=== PATIENT | male | born 1960 | race Hispanic/Latino ===

== ENCOUNTER 2017-06-19 07:17 | Emergency (ER) | payer BC ==
--- NOTE | 2017-06-19 07:33 | ED PDOC ---
Arrival/HPI - General Time Seen by Provider: 06/19/17 07:32 Historian: Patient - History of Present Illness Narrative History of Present Illness (Text): 06/19/17 08:00 56 year old male, who presents to the emergency department complaining of intermittent epigastric pain since one week. Patient reports having a subjective fever associated with diarrhea. Patient denies nausea, vomiting, chest pain, shortness of breath, dysuria, hematuria, or other complaints. Time/Duration: 1 week Symptom Onset: Sudden Symptom Course: Unchanged, Intermittent Context: Home Past Medical History - Provider Review Nursing Documentation Reviewed: Yes Family/Social History - Physician Review Nursing Documentation Reviewed: Yes Family/Social History: Unknown Family HX Allergies/Home Meds Allergies/Adverse Reactions: Allergies oxytetracycline [From Terramycin] Allergy (Verified 06/19/17 07:32) ANAPHYLAXIS Penicillins Allergy (Verified 06/19/17 07:32) ANAPHYLAXIS Review of Systems - Physician Review All systems were reviewed & negative as marked: Yes - Review of Systems Constitutional: Fevers Respiratory: absent: SOB Cardiovascular: absent: Chest Pain Gastrointestinal: Abdominal Pain, Diarrhea. absent: Vomiting Genitourinary Male: absent: Dysuria Physical Exam Vital Signs Reviewed: Yes Vital Signs Temp Pulse Resp BP Pulse Ox 06/19/17 09:38 98.9 F 62 18 99 06/19/17 09:37 62 18 99 06/19/17 07:35 98.5 F 68 18 147/95 H 97 Temperature: Afebrile Blood Pressure: Hypertensive Pulse: Regular Respiratory Rate: Normal Appearance: Positive for: Well-Appearing, Non-Toxic, Comfortable Pain Distress: None Mental Status: Positive for: Alert and Oriented X 3 - Systems Exam Head: Present: Atraumatic, Normocephalic Pupils: Present: PERRL Extroacular Muscles: Present: EOMI Conjunctiva: Present: Normal Respiratory/Chest: Present: Clear to Auscultation, Good Air Exchange. No: Respiratory Distress, Accessory Muscle Use, Wheezes, Rales, Rhonchi Cardiovascular: Present: Regular Rate and Rhythm, Normal S1, S2. No: Murmurs Abdomen: Present: Tenderness (mild left upper quadrant tenderness). No: Distention, Peritoneal Signs, Rebound, Guarding Neurological: Present: GCS=15, CN II-XII Intact, Speech Normal Skin: Present: Warm, Dry, Normal Color. No: Rashes Psychiatric: Present: Alert, Oriented x 3, Normal Insight, Normal Concentration Medical Decision Making ED Course and Treatment: 06/19/17 Impression: 56 year old male with mild left upper quadrant tenderness complaining of epigastric abdominal pain associated with diarrhea. Plan: -- EKG -- CT abdomen and pelvis -- Labs -- Sodium Chloride -- Reassess and disposition Progress Notes: EKG: Ordered, reviewed, and independently interpreted the EKG. Rate : 67 BPM Rhythm : NSR Interpretation : No ST-segment elevations or depressions, no T-wave inversions, normal intervals. 06/19/17 09:[address]: Creator : Michael Land MD FINDINGS: LOWER THORAX: Unremarkable. LIVER: Unremarkable. No gross lesion or ductal dilatation. GALLBLADDER AND BILE DUCTS: Unremarkable. PANCREAS: Unremarkable. No gross lesion or ductal dilatation. SPLEEN: Unremarkable. ADRENALS: Unremarkable. No mass. KIDNEYS AND URETERS: 2 centimeter left peripelvic renal cyst. No hydronephrosis. No solid mass. VASCULATURE: Unremarkable. No aortic aneurysm. BOWEL: Unremarkable. No obstruction. No gross mural thickening. APPENDIX: Normal appendix. PERITONEUM: Unremarkable. No free fluid. No free air. LYMPH NODES: Unremarkable. No enlarged lymph nodes. BLADDER: Unremarkable. REPRODUCTIVE: Unremarkable. BONES: No acute fracture. OTHER FINDINGS: None. IMPRESSION: 2 centimeter left peripelvic renal cyst. Otherwise, unremarkable contrast enhanced CT of the abdomen and pelvis. - Lab Interpretations Lab Results: 06/19/17 07:55 06/19/17 07:55 Lab Results 06/19/17 07:55: Sodium 140, Potassium 4.3, Chloride 103, Carbon Dioxide 24, Anion Gap 18, BUN 14, Creatinine 0.9, Est GFR ( Amer) > 60, Est GFR (Non- Af Amer) > 60, Random Glucose 110, Calcium 9.1, Magnesium 2.1, Total Bilirubin 2.1 H, AST 23, ALT 34, Alkaline Phosphatase 63, Troponin I < 0.01, Total Protein 7.5, Albumin 4.4, Globulin 3.1, Albumin/Globulin Ratio 1.4, Lipase 67 06/19/17 07:55: WBC 7.4, RBC 5.25, Hgb 15.3, Hct 43.4, MCV 82.7, MCH 29.1, MCHC 35.3, RDW 13.1, Plt Count 216, MPV 10.7, Gran % 70.0 H, Lymph % (Auto) 17.8 L, [place] % (Auto) 10.5 H, Eos % (Auto) 1.6, Baso % (Auto) 0.1, Gran # 5.18, Lymph # (Auto) 1.3, [place] # (Auto) 0.8 H, Eos # (Auto) 0.1, Baso # (Auto) 0.01 I have reviewed the lab results: Yes - RAD Interpretation Radiology Orders: 06/19/17 07:46 ABD & PELVIS IV CONTRAST ONLY [CT] Stat Couture Alterations Dressmaker: Radiologist - EKG Interpretation Interpreted by ED Physician: Yes Type: 12 lead EKG - Medication Orders Current Medication Orders: Discontinued Medications Sodium Chloride (Sodium Chloride 0.9%) 1,000 mls @ 250 mls/hr IV .Q4H ONE Stop: 06/19/17 11:46 Last Admin: 06/19/17 08:05 Dose: 250 mls/hr eMAR Start Stop Document 06/19/17 08:05 [email or web address] (Rec: 06/19/17 08:05 [email or web address] [id number]) Intravenous Solution Start Date 06/19/17 Start Time 08:05 End Date 06/19/17 - Scribe Statement The provider has reviewed the documentation as recorded by the Vibha Cuevas Provider Scribe Attestation: All medical record entries made by the Scribe were at my direction and personally dictated by me. I have reviewed the chart and agree that the record accurately reflects my personal performance of the history, physical exam, medical decision making, and the department course for this patient. I have also personally directed, reviewed, and agree with the discharge instructions and disposition. Disposition/Present on Arrival - Present on Arrival Any Indicators Present on Arrival: No - Disposition Have Diagnosis and Disposition been Completed?: Yes Diagnosis: Diarrhea Disposition: HOME/ ROUTINE Disposition Time: 09:05 Condition: GOOD Discharge Instructions (ExitCare): Diarrhea in Adolescents and Adults Additional Instructions: Thank you for letting us take care of you today. The emergency medical care you received today was directed at your acute symptoms. If you were prescribed any medication, please fill it and take as directed. It may take several days for your symptoms to resolve. Return to the Emergency Department if your symptoms worsen, do not improve, or if you have any other problems. Please contact your doctor or call one of the physicians/clinics you have been referred to that are listed on the Patient Visit Information form that is included in your discharge packet. Bring any paperwork you were given at discharge with you along with any medications you are taking to your follow up visit. Our treatment cannot replace ongoing medical care by a primary care provider (PCP) outside of the emergency department. Thank you for allowing the [facility] team to be part of your care today. Follow up with your primary care doctor in 2-3 days for re-evaluation and further management. Prescriptions: Ciprofloxacin [Cipro] 500 mg PO BID #14 tab metroNIDAZOLE [Flagyl] 500 mg PO Q8 #21 tab Referrals: Levi Kuo MD [Family Provider] - Follow up with primary Forms: MYTRND (E[place]ian)
[2017-06-19 07:41] VITALS: BP 147/95; RESP 18; BMI 33.4
[2017-06-19] MEDS ORDERED: Sodium Chloride 0.9% 1,000 ML IV ONE (07:47)
[2017-06-19 08:00] LABS: BASO # 0.01 K/mm3 (0.0-2.0); BASO % 0.1 % (0.0-3.0); EOS # 0.1 (0.0-0.7); EOS % 1.6 % (1.5-5.0); GRAN # 5.18 (1.4-6.5); HEMOGLOBIN 15.3 g/dL (14.0-18.0); LYMPH # 1.3 (1.2-3.4); LYMPH % 17.8 % (22.0-35.0); MEAN CELL VOLUME 82.7 fl (80.0-105.0); MEAN CORPUSCULAR HEMOGLOBIN 29.1 pg (25.0-35.0); MEAN CORPUSCULAR HGB CONC 35.3 g/dl (31.0-37.0); MEAN PLATELET VOLUME 10.7 fl (7.0-11.0); MONO # 0.8 (0.1-0.6); MONO % 10.5 % (1.0-6.0); RBC 5.25 10^6/uL (3.5-6.1); RED CELL DISTRIBUTION WIDTH 13.1 % (11.5-14.5); WHITE BLOOD COUNT 7.4 10^3/ul (4.5-11.0)
[2017-06-19 08:12] LABS: ALB/GLOB RATIO 1.4 (1.1-1.8); ALBUMIN 4.4 g/dL (3.0-4.8); ALT/SGPT 34 U/L (7-56); AST/SGOT 23 U/L (17-59); BLOOD UREA NITROGEN 14 mg/dL (7-21); CALCIUM 9.1 mg/dL (8.4-10.5); GFR AFRICAN-AMERICAN > 60; GFR NON-AFRICAN AMERICAN > 60; LIPASE 67 U/L (23-300)
[2017-06-19 08:23] LABS: TROPONIN I < 0.01 ng/mL
[2017-06-19] MEDS ORDERED: Iohexol 350 MG/100 ML VIAL ONE (08:26)
--- NOTE | 2017-06-19 09:06 | CT ---
PROCEDURE: CT Abdomen and Pelvis with contrast HISTORY: epigastric/LUQ tenderness COMPARISON: None. TECHNIQUE: Contrast dose: Radiation dose: Total exam DLP = mGy-cm. This CT exam was performed using one or more of the following dose reduction techniques: Automated exposure control, adjustment of the mA and/or kV according to patient size, and/or use of iterative reconstruction technique. FINDINGS: LOWER THORAX: Unremarkable. LIVER: Unremarkable. No gross lesion or ductal dilatation. GALLBLADDER AND BILE DUCTS: Unremarkable. PANCREAS: Unremarkable. No gross lesion or ductal dilatation. SPLEEN: Unremarkable. ADRENALS: Unremarkable. No mass. KIDNEYS AND URETERS: 2 centimeter left peripelvic renal cyst. No hydronephrosis. No solid mass. VASCULATURE: Unremarkable. No aortic aneurysm. BOWEL: Unremarkable. No obstruction. No gross mural thickening. APPENDIX: Normal appendix. PERITONEUM: Unremarkable. No free fluid. No free air. LYMPH NODES: Unremarkable. No enlarged lymph nodes. BLADDER: Unremarkable. REPRODUCTIVE: Unremarkable. BONES: No acute fracture. OTHER FINDINGS: None. IMPRESSION: 2 centimeter left peripelvic renal cyst. Otherwise, unremarkable contrast enhanced CT of the abdomen and pelvis.
[2017-06-19 09:38] VITALS: PULSE 62; TEMP 98.9; O2SAT 99
--- NOTE | 2017-06-19 11:43 | CARD ---
APPROVED REPORT EKG Measurement Heart [id number] NH 132P6 [id number] <Conclusion> Normal sinus rhythm PRWP V 4 -6 possible due to lead positioning.
== END 2017-06-19 09:38 | disposition home or self-care (01) ==
LOC: ED 07:17
DX: R19.7 Diarrhea, unspecified (principal)
CPT/HCPCS: 74177; 80053; 83690; 83735; 84484; 85025; 93005; 99283; J7040; Q9967